=== PATIENT | female | born 1980 | race Caucasian/White ===

== ENCOUNTER 2020-08-18 16:03 | Emergency (ER) | payer OTHER, SELFPAY ==
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
--- NOTE | ~2020-08-18 | XR_ITS ---
XR tibia fibula RT 2V 08/18/2020 17:30 INDICATION: Right leg pain PROCEDURE: 2 views right tibia/fibula COMPARISON: No prior studies for comparison. FINDINGS: Fracture, dislocation or subluxation is not identified. The soft tissues appear within norm al limits. No foreign bodies are identified. IMPRESSION: 1: NO ACUTE BONE OR JOINT ABNORMALITY IDENTIFIED. Reviewed, dictated and finalized at location A.
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
--- NOTE | ~2020-08-18 | XR_ITS ---
XR tibia fibula LT 2V 08/18/2020 17:31 INDICATION: Left leg pain PROCEDURE: 2 views left tibia/fibula COMPARISON: No prior studies for comparison. FINDINGS: Fracture, dislocation or subluxation is not identified. The soft tissues appear within norm al limits. No foreign bodies are identified. IMPRESSION: 1: NO ACUTE BONE OR JOINT ABNORMALITY IDENTIFIED. Reviewed, dictated and finalized at location A.
[2020-08-18 16:36] VITALS: BP 126/82; PULSE 87; RESP 17; TEMP 36.7; O2SAT 100
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
== END 2020-08-18 18:02 | disposition home or self-care (01) ==
PROVIDERS: Emergency Provider Emergency Medicine; PCP Family Medicine
DX: S50.12XA Contusion of left forearm, initial encounter (principal); S50.11XA Contusion of right forearm, initial encounter; V43.52XA Car driver injured in collision with other type car in traffic accident, initial encounter
CPT/HCPCS: 71046; 71100; 73090; 73590; 99284

== ENCOUNTER → 2020-08-26 15:51 | Outpatient (CLI) | payer OTHER, SELFPAY ==
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
== END ==
PROVIDERS: Visit Provider Physician Assistant
DX: M54.12 Radiculopathy, cervical region (principal); M47.812 Spondylosis without myelopathy or radiculopathy, cervical region
CPT/HCPCS: 72040

== ENCOUNTER 2022-01-06 08:09 | Emergency (ER) | payer OTHER, SELFPAY ==
--- NOTE | 2022-01-06 08:15 | ED.GENADULT ---
HPI - General Adult General Chief complaint: Upper Respiratory Infection Stated complaint: Sore throat, fever Time Seen by Provider: 01/06/22 08:12 History of Present Illness HPI narrative: Mrs Guajardo is a 41 y/o female. PMHx MDD, CHANTALE. Presents to the [facility] clinic today w/acute complaints of sore throat and subjective fever at home for the past 24 hours. Client tells me she has a strong history of streptococcal throat infection. She notes white patches in her throat, and similar presentation historically. No NEWMAN, body aches, chills. No stridor, dyspnea, involuntary drooling. No cough, chest pain. No GI upset N/V. 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 No additional acute c/o upon PE. Related Data Home Medications Medication Instructions Recorded Confirmed multivitamin (Multiple Vitamins 1 tablet PO DAILY 06/03/20 01/06/22 tablet) Allergies Allergy/AdvReac Type Severity Reaction Status Date / Time latex Allergy Severe Rash Verified 01/06/21 14:39 erythromycin base Allergy Unknown up set Verified 01/06/21 14:39 stomach Review of Systems Review of Systems: CONSTITUTIONAL: Positive fever. No chills, sweats. EYES: Denies visual changes, redness, discharge. ENT: Nasal congestion, sore throat. Denies otalgia. CARDIOVASCULAR: Denies chest pain, palpitations, edema. RESPIRATORY: Denies dyspnea, wheezing, cough GASTROINTESTINAL: Denies abdominal pain, nausea, vomiting, diarrhea. GENITOURINARY: Denies dysuria, hematuria, abnormal discharge SKIN: Denies rash or itching. MUSCULOSKELETAL: Denies acute back pain, joint pain, or myalgia. NEUROLOGIC: Denies numbness, or focal weakness. PSYCHIATRIC: Denies SI/HI. [facility] Past Medical History Medical History FH: mastectomy GERD (gastroesophageal reflux disease) Kidney stones Surgical History Surgical History H/O lumpectomy Breast 2000, 2003 Previous section Family History Family History Grandparent Carcinoma of colon Mother Colon polyp Other Diabetes mellitus Family history of breast disorder Malignant neoplasm of prostate No family history of malignant neoplasm Social History Social History Second hand tobacco smoke exposure: Yes Alcohol intake: current Drinks per week: 1 Substance use: never Substance use type: other Gender identity (if verbalized by the patient): Female Exam Narrative: GENERAL: This is a well-nourished, well-developed adult, in no apparent distress. HEAD: normocephalic, atraumatic. EYES: PERRL. Sclera clear/white. EARS: External ears normal, auditory canals clear and without drainage, TMs normal. NOSE: External nose normal. Positive Rhinorrhea, no obstruction, nares patent. THROAT: Mucous membranes moist, posterior pharynx is erythematous, with mild exudative changes. No oropharyngeal significant swelling. NECK: Neck supple, non-tender without lymphadenopathy, masses or thyromegaly. CARDIOVASCULAR: Regular rate and rhythm without murmurs, gallops, or rubs. RESPIRATORY: Clear to auscultation. Breath sounds equal bilaterally. No wheezes, rales, or rhonchi. GASTROINTESTINAL: Abdomen soft, non-tender, nondistended. Bowel sounds are active. No guarding. SKIN: warm, intact with no suspicious lesions or rash, good texture and turgor. NEURO: Alert, active, and age appropriate. No focal neurologic deficits. Course Course Level of Care: Express Care Visit Vital Signs Vital signs: Vital Signs Temperature 37.1 C 01/06/22 08:19 Pulse Rate 90 01/06/22 08:19 Respiratory Rate 16 01/06/22 08:19 Blood Pressure 145/107 H 01/06/22 08:19 Pulse Oximetry 100 01/06/22 08:19 Oxygen Delivery Room Air 01/06/22
[2022-01-06 08:19] VITALS: BP 145/107; PULSE 90; RESP 16; TEMP 37.1; O2SAT 100
== END 2022-01-06 08:40 | disposition home or self-care (01) ==
PROVIDERS: Emergency Provider Nurse Practitioner Adult Health; PCP Physician Assistant
DX: J02.9 Acute pharyngitis, unspecified (principal); K21.9 Gastro-esophageal reflux disease without esophagitis; Z87.442 Personal history of urinary calculi
CPT/HCPCS: 87081; 87880; 99213; G0463

== ENCOUNTER 2022-05-07 08:22 | Emergency (ER) | payer OTHER, SELFPAY ==
--- NOTE | ~2022-05-07 | XR_ITS ---
EXAMINATION: XR chest 2V 05/07/2022 09:29 INDICATION: Chest pressure PROCEDURE: 2 view chest COMPARISON: 08/18/2020 FINDINGS: The lungs are clear. The cardiomediastinal silhouette is within normal limits. There are no pleural effusions. There is no pneumothorax suspected. IMPRESSION: 1: NO ACUTE CARDIOPULMONARY DISEASE. Reviewed, dictated and finalized at location A. 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
--- NOTE | 2022-05-07 08:29 | ECG_ITS ---
Measurements Intervals Hiko Rate: 94 P: 55 AK: 143 QRS: 14 QRSD: 86 T: 24 QT: 350 QTc: 439 Interpretive Statements SINUS RHYTHM WITH SINUS ARRHYTHMIA BASELINE ARTIFACT- I, III NORMAL ECG COMPARED TO ECG 07/11/2018 10:34:48 SINUS ARRHYTHMIA NOW PRESENT Electronically Signed On 05-07-2022 9:59:24 APPLIED RESEARCH DIRECTOR by Yonathan Chen D.O.
[2022-05-07 08:48] VITALS: BP 130/85; PULSE 100; RESP 18; TEMP 36.8; O2SAT 100
[2022-05-07 09:03] VITALS: PULSE 94
[2022-05-07 09:05] VITALS: O2SAT 100
[2022-05-07 09:15] VITALS: BP 122/79; PULSE 85; RESP 17; O2SAT 100
--- NOTE | 2022-05-07 09:20 | ED.CHESTPAIN ---
HPI - Chest Pain General Chief Complaint: Chest Pain Stated Complaint: chest tightness, visual change (resolved) Time Seen by Provider: 05/07/22 09:02 History of Present Illness HPI narrative: 41-year-old female with history of anxiety and panic attacks here for evaluation of an episode of chest pain today. Patient states that she was standing in her kitchen when she suddenly felt a tightness develop in the center of her chest. This lasted for several seconds before resolving without intervention. After this event, she had a episode of lightheadedness and presyncope where she had some visual changes, this also resolved without intervention after lasting for several seconds. Patient does have a history of panic attacks and states that this episode feels similar, and the symptoms themselves are very distressing for her and caused her to have a panic attack afterwards. She currently denies any symptoms. No headaches, nausea, vomiting, eye pain, unilateral weakness, slurred speech. Related Data Home Medications Medication Instructions Recorded Confirmed multivitamin (Multiple Vitamins 1 tablet PO DAILY 06/03/20 01/24/22 tablet) Allergies Allergy/AdvReac Type Severity Reaction Status Date / Time latex Allergy Severe Rash Verified 05/07/22 09:06 erythromycin base Allergy Unknown up set Verified 05/07/22 09:06 stomach Review of Systems Review of Systems: Gen: Reports presyncope Eyes: Denies eye pain or visual change ENT: Denies congestion Respiratory: Denies shortness of breath or cough CV: Reports chest pain, resolved. GI: Denies abdominal pain nausea, emesis or diarrhea denies burning, urgency, frequency or hematuria Musculoskeletal: Denies back pain or muscle pain Neuro: Denies numbness, tingling, weakness or focal weakness Skin: Denies rash Except as documented, all other systems reviewed and negative [facility] Past Medical History Medical History FH: mastectomy GERD (gastroesophageal reflux disease) Kidney stones Surgical History Surgical History H/O lumpectomy Breast 2000, 2003 Previous section Family History Family History Grandparent Carcinoma of colon Mother Colon polyp Other Diabetes mellitus Family history of breast disorder Malignant neoplasm of prostate No family history of malignant neoplasm Social History Social History (Updated 01/24/22 @ 08:26 by Cathleen Trent) Social History: Caffeine-coffee daily Years smoked: 12 Smoking status: Current every day smoker Second hand tobacco smoke exposure: Yes Alcohol intake: current Drinks per week: 1 Alcohol use details: beer occasionally Substance use: never Substance use type: other Gender identity (if verbalized by the patient): Female Exam Narrative: APPEARANCE: Well appearing, no pain in distress, well-nourished. Head: Normocephalic and atraumatic. EYES: PERRLA/EOMI, conjunctivae clear NOSE: No nasal drainage EARS: External ear normal in appearance THROAT: Oropharynx is clear. Mucous membranes are moist. NECK: Supple. No adenopathy, no masses. RESPIRATORY: Airway patent, respirations nonlabored. Clear to auscultation bilaterally, no rales, rhonchi, wheezing. CARDIOVASCULAR: Regular rate and rhythm without murmurs, rubs, or gallops. ABDOMINAL: Normoactive bowel sounds. Soft, nontender, nondistended. No rebound tenderness or guarding. MUSCULOSKELETAL: Extremities are warm and well-perfused. Moves all extremities well. No edema. NEURO: Normal speech. No focal neurologic deficits. SKIN: Skin is warm and dry. No rashes. PSYCHIATRIC: Normal affect/mood.. Course Vital Signs Vital signs: Vital Signs Temperature 98.2 F 05/07/22 08:48 Pulse Rate 100 05/07/22 08:48 Respiratory Rate 18 05/07/22 08:48 Blood Press
[2022-05-07 09:48] LABS: Basophils Percent Auto 0.5 % (0.2-1.2); Eosinophils Absolute Auto 0.1 K/mm3 (0-0.3); Hematocrit 44.8 % (37.0-47.0); Hemoglobin 14.8 g/dL (12.0-15.0); Immature Granulocyte Absolute 0.02 K/mm3 (0.00-0.031); Immature Granulocyte Percent A 0.3 % (0-0.5); Lymphocytes Absolute Auto 1.85 K/mm3 (0.9-3.2); Lymphocytes Percent Auto 25.3 % (18.3-44.2); Mean Corpuscular Hemoglobin 31.3 pg (26-34); Mean Corpuscular Volume 94.7 fl (80-100); Mean Platelet Volume 9.1 fl (7.4-10.4); Monocytes Absolute Auto 0.5 K/mm3 (0.1-0.6); Monocytes Percent Auto 6.8 % (2.6-8.5); Neutrophils Absolute Auto 4.8 K/mm3 (1.3-6.7); Neutrophils Percent Auto 66.1 % (45.5-73.1); Platelet Count Result 285 k/mm3 (150-375); Red Blood Count 4.73 M/mm3 (4.2-5.4); Red Cell Distribution Width 12.6 % (11.5-14.5); White Blood Count 7.3 K/mm3 (4.5-10.0)
[2022-05-07 10:08] VITALS: BP 128/85; PULSE 73; RESP 18; O2SAT 100
[2022-05-07 10:10] LABS: Alanine Aminotransferase 23 U/L (6-35); Albumin Level 4.8 g/dL (3.5-5.1); Alkaline Phosphatase 58 U/L (38-126); Anion Gap 6 mmol/L (8-16); Aspartate Amino Transferase 26 U/L (14-36); Bilirubin,Total 0.8 mg/dL (0.2-1.3); Blood Urea Nitrogen 16 mg/dL (7-17); Carbon Dioxide 26 mmol/L (22-30); Chloride 107 mmol/L (98-107); Estimated CRCL calculation 117 ml/min; Estimated Glomerular Filt Rate > 60; Glucose 107 mg/dL (65-110); Lipase 125 U/L (23-300); Potassium 3.8 mmol/L (3.4-5.0); Sodium 139 mmol/L (137-145)
[2022-05-07 10:21] LABS: Troponin I < 0.012 ng/mL (0.000-0.034)
[2022-05-07 10:39] VITALS: BP 124/86; PULSE 78; RESP 18; O2SAT 100
== END 2022-05-07 10:41 | disposition home or self-care (01) ==
PROVIDERS: Emergency Provider Physician Assistant; PCP Family Medicine
DX: F41.9 Anxiety disorder, unspecified (principal); K21.9 Gastro-esophageal reflux disease without esophagitis; F17.200 Nicotine dependence, unspecified, uncomplicated; Z87.442 Personal history of urinary calculi
CPT/HCPCS: 36415; 71046; 80053; 83690; 84484; 85025; 93005; 99284

== ENCOUNTER 2022-07-16 15:46 | Emergency (ER) | payer OTHER, SELFPAY ==
[2022-07-16 16:00] VITALS: BP 123/87; PULSE 98; RESP 16; TEMP 37.2; O2SAT 98
--- NOTE | 2022-07-16 16:37 | ED.URI ---
HPI - URI/Sore Throat General Chief Complaint: Upper Respiratory Infection Stated Complaint: BODY ACHES/COUGH/CONGESTION Time Seen by Provider: 07/16/22 16:30 History of Present Illness HPI Narrative: 41-year-old female presented for complaint of body aches and cough for the last 2 days. She states she cannot lay down without feeling crackles in her chest, and cannot breathe without coughing. She states cough is productive of brown sputum, denies shortness of breath, wheezing, nausea vomiting, diarrhea, fevers or chills. She is taking ibuprofen and Delsym for symptoms. Endorses son with similar symptoms and daughter had flu last week. Related Data Home Medications Medication Instructions Recorded Confirmed multivitamin (Multiple Vitamins 1 tablet PO DAILY 06/03/20 07/16/22 tablet) Allergies Allergy/AdvReac Type Severity Reaction Status Date / Time latex Allergy Severe Rash Verified 05/07/22 09:06 erythromycin base Allergy Unknown up set Verified 05/07/22 09:06 stomach Review of Systems Review of Systems: CONSTITUTIONAL: Reports body aches, Denies fever, chills, or sweats. EYES: Denies visual changes, redness, or discharge. ENT: Denies rhinorrhea, congestion, or otalgia. CARDIOVASCULAR: Denies chest pain, palpitations, or edema. RESPIRATORY: Reports cough denies dyspnea. GASTROINTESTINAL: Denies abdominal pain, nausea, vomiting, or diarrhea. SKIN: Denies rash, itching, or wounds. MUSCULOSKELETAL: Denies back pain, joint pain, or myalgia. NEUROLOGIC: Denies headache PMFSH Past Medical History Medical History Diffuse cystic mastopathy FH: mastectomy Generalized anxiety disorder GERD (gastroesophageal reflux disease) Kidney stones Nicotine dependence Surgical History Surgical History H/O lumpectomy Breast 2000, 2003 Previous section Family History Family History Grandparent Carcinoma of colon Mother Colon polyp Other Diabetes mellitus Family history of breast disorder Malignant neoplasm of prostate No family history of malignant neoplasm Social History Social History Social History: Caffeine-coffee daily Years smoked: 12 Smoking status: Current every day smoker Second hand tobacco smoke exposure: Yes Alcohol intake: current Drinks per week: 1 Alcohol use details: beer occasionally Substance use: never Substance use type: other Living arrangements: with family Occupation/Education: occupation Gender identity (if verbalized by the patient): Female Exam Narrative: GENERAL: midly Ill-appearing, no acute distress. EYES: conjunctivae clear ENT: Mucous membranes moist. TM pearly love with normal light reflex bilaterally; no tragal tenderness. Oropharynx not erythematous without tonsillar swelling, lesions or exudate. No drooling, no hoarseness, no trismus, uvula midline. No tripod positioning, hot potato voice, or soft palate swelling. NECK: Supple. No lymphadenopathy CHEST: Clear to auscultation, breath sounds equal. Occasional nonproductive cough. no respiratory distress, speaks in full sentences. HEART: Regular rate and rhythm. No murmur heard. SKIN: Warm, dry, no rash. NEURO: Alert and oriented x3. Course Course Emergency Course: Patient is aware of diagnosis, understands and agrees to treatment plan. Anticipatory guidance given. Patient agrees to follow-up as directed and is aware of reasons to seek care at the emergency department. Portions of this record may have been created with voice recognition software Level of Care: Express Care Visit Vital Signs Vital signs: Vital Signs Temperature 98.9 F 07/16/22 16:00 Pulse Rate 98 07/16/22 16:00 Respiratory Rate 16 07/16/22 16:00 Blood Pressure
== END 2022-07-16 17:15 | disposition home or self-care (01) ==
PROVIDERS: Emergency Provider Nurse Practitioner Family; PCP Family Medicine
DX: B34.9 Viral infection, unspecified (principal); F17.200 Nicotine dependence, unspecified, uncomplicated; Z20.822 Contact with and (suspected) exposure to COVID-19
CPT/HCPCS: 87426; 87804; 99213; C9803; G0463

== ENCOUNTER 2022-08-17 13:52 | Emergency (ER) | payer OTHER, SELFPAY ==
--- NOTE | 2022-08-17 13:59 | ED.URI ---
HPI - URI/Sore Throat General Chief Complaint: Upper Respiratory Infection Stated Complaint: FEVER/SORE THROAT Time Seen by Provider: 08/17/22 14:09 Source: patient and RN notes reviewed Mode of arrival: ambulatory Limitations: no limitations History of Present Illness HPI Narrative: 41-year-old female presents with concern for sore throat, fever. History of strep infections. She denies runny nose, stuffy nose. Denies known sick contacts MD elicited complaint: sore throat Related Data Home Medications Medication Instructions Recorded Confirmed multivitamin (Multiple Vitamins 1 tablet PO DAILY 06/03/20 08/17/22 tablet) Allergies Allergy/AdvReac Type Severity Reaction Status Date / Time latex Allergy Severe Rash Verified 08/17/22 14:08 erythromycin base Allergy Unknown up set Verified 08/17/22 14:08 stomach Review of Systems Review of Systems: CONSTITUTIONAL: Denies malaise, chills, sweats, or fever. EYES: Denies visual changes, redness, or discharge. ENT: Reports rhinorrhea, congestion, sinus pain, otalgia and sore throat. CARDIOVASCULAR: Denies chest pain, palpitations, or edema. RESPIRATORY: Reports cough. Denies dyspnea. GASTROINTESTINAL: Denies abdominal pain, nausea, vomiting, diarrhea SKIN: Denies rash or itching. MUSCULOSKELETAL: Denies myalgia. NEUROLOGIC: Denies headache. All systems reviewed & are unremarkable except as noted in HPI and below PMFSH Past Medical History Medical History Diffuse cystic mastopathy FH: mastectomy Generalized anxiety disorder GERD (gastroesophageal reflux disease) Kidney stones Nicotine dependence Surgical History Surgical History H/O lumpectomy Breast 2000, 2003 Previous section Family History Family History Grandparent Carcinoma of colon Mother Colon polyp Other Diabetes mellitus Family history of breast disorder Malignant neoplasm of prostate No family history of malignant neoplasm Social History Social History Social History: Caffeine-coffee daily Years smoked: 12 Smoking status: Current every day smoker Second hand tobacco smoke exposure: Yes Alcohol intake: current Drinks per week: 1 Alcohol use details: beer occasionally Substance use: never Substance use type: other Living arrangements: with family Occupation/Education: occupation Gender identity (if verbalized by the patient): Female Comments At time of signature, agree with nursing past medical, surgical, social and family history. There is no relevant family history pertinent to the presenting complaint Exam Narrative: GENERAL: Well-appearing, well-nourished, and in no acute distress. HEAD: Normocephalic EYES: PERRLA, conjunctivae clear ENT: Nares clear, clear discharge. Mucous membranes moist. TM pearly love with dull light reflex bilaterally; no tragal tenderness. Oropharynx erythematous without lesions. Tonsils not enlarged and without exudate, no drooling, no hoarseness, no trismus, uvula midline. NECK: Supple. No lymphadenopathy CHEST: Clear to auscultation, breath sounds equal. No wheezing, rhonchi, rales, or stridor. No respiratory distress, speaks in full sentences. HEART: Regular rate and rhythm. No murmur heard. SKIN: Warm, dry, no rash. NEURO: Alert and oriented x3. PSYCH: Normal mood and affect Course Course Emergency Course: Patient is aware of diagnosis, understands and agrees to treatment plan. Anticipatory guidance given. Patient agrees to follow-up as directed and is aware of reasons to seek care at the emergency department. Portions of this record may have been created with voice recognition software Level of Care: Express Care Visit Vital Signs Vital signs: Reviewed. MDM - URI/Sore Throat
[2022-08-17 14:07] VITALS: BP 132/90; PULSE 102; RESP 16; TEMP 36.6; O2SAT 99
[2022-08-17 14:09] VITALS: BP 132/90; PULSE 102; RESP 16; TEMP 36.6; O2SAT 99
== END 2022-08-17 14:20 | disposition home or self-care (01) ==
PROVIDERS: Emergency Provider Nurse Practitioner; PCP Family Medicine
DX: J02.0 Streptococcal pharyngitis (principal); F17.200 Nicotine dependence, unspecified, uncomplicated; K21.9 Gastro-esophageal reflux disease without esophagitis; F41.1 Generalized anxiety disorder
CPT/HCPCS: 87880; 99213; G0463

== ENCOUNTER 2022-08-28 08:06 | Emergency (ER) | payer OTHER, SELFPAY ==
--- NOTE | 2022-08-28 08:20 | ED.URI ---
HPI - URI/Sore Throat General Chief Complaint: Upper Respiratory Infection Stated Complaint: sore throat, trouble swallowing Time Seen by Provider: 08/28/22 08:20 Source: patient, RN notes reviewed and old records reviewed Mode of arrival: ambulatory Limitations: no limitations History of Present Illness HPI Narrative: 41-year-old female who presents to [facility] with continued complaints of sore throat and trouble swallowing since yesterday, one day after completion of previous ordered antibiotic. Patient was treated on the 17 of August with Penicillin VK with 10 days supply for positive strep screen. Patient reports since yesterday she has had progressive increase in pain and swelling of her throat with swelling of the glands in her throat and swelling and redness of uvula. Patient reports that she has been able to control her own secretions orally but pain swallowing.Patient has been taking Ibuprofen for her discomfort, unknown if fever but has had chills and sweats. MD elicited complaint: sore throat Pertinent past history: other (recent strep throat diagnosis on August 17) Onset (ago): day(s) (since yesterday) Pain scale (0-10): 6 Exacerbating factors: swallowing Treatments prior to arrival: ibuprofen and antibiotics ( completed 10 day supply of Penicillin-VK) Related Data Home Medications Medication Instructions Recorded Confirmed multivitamin (Multiple Vitamins 1 tablet PO DAILY 06/03/20 08/28/22 tablet) Allergies Allergy/AdvReac Type Severity Reaction Status Date / Time latex Allergy Severe Rash Verified 08/28/22 08:20 erythromycin base Allergy Unknown up set Verified 08/28/22 08:20 stomach Review of Systems Review of Systems: CONSTITUTIONAL: Reports malaise, chills, sweats, or fever. EYES: Denies visual changes, redness, or discharge. ENT: Reports rhinorrhea, congestion,no sinus pain,no otalgia, positive for sore throat. CARDIOVASCULAR: Denies chest pain, palpitations, or edema. RESPIRATORY: Reports no cough.? Denies dyspnea. GASTROINTESTINAL: Denies abdominal pain, nausea, vomiting, diarrhea SKIN: Denies rash or itching. MUSCULOSKELETAL: reports myalgia. NEUROLOGIC: Denies headache. All systems reviewed & are unremarkable except as noted in HPI and below PMFSH Past Medical History Medical History Diffuse cystic mastopathy FH: mastectomy Generalized anxiety disorder GERD (gastroesophageal reflux disease) Kidney stones Nicotine dependence Surgical History Surgical History H/O lumpectomy Breast 2000, 2003 Previous section Family History Family History Grandparent Carcinoma of colon Mother Colon polyp Other Diabetes mellitus Family history of breast disorder Malignant neoplasm of prostate No family history of malignant neoplasm Social History Social History Social History: Caffeine-coffee daily Years smoked: 12 Smoking status: Current every day smoker Second hand tobacco smoke exposure: Yes Alcohol intake: current Drinks per week: 1 Alcohol use details: beer occasionally Substance use: never Substance use type: other Living arrangements: with family Occupation/Education: occupation Gender identity (if verbalized by the patient): Female Comments At time of signature, agree with nursing past medical, surgical, social and family history. There is no relevant family history pertinent to the presenting complaint Exam Narrative: GENERAL: Well-appearing, well-nourished, and in no acute distress. HEAD: Normocephalic EYES: PERRLA, conjunctivae clear ENT: Nares clear, turbinates edematous and erythematous, clear discharge. Mucous membranes moist. TM pearly love with dull light reflex bilaterally; no tra
[2022-08-28 08:27] VITALS: BP 110/79; PULSE 97; RESP 16; TEMP 36.8; O2SAT 99
== END 2022-08-28 08:42 | disposition home or self-care (01) ==
PROVIDERS: Emergency Provider Registered Nurse; PCP Family Medicine
DX: J02.0 Streptococcal pharyngitis (principal); K12.2 Cellulitis and abscess of mouth; F17.200 Nicotine dependence, unspecified, uncomplicated; K21.9 Gastro-esophageal reflux disease without esophagitis
CPT/HCPCS: 87880; 99213; G0463

== ENCOUNTER → 2023-05-09 15:51 | Outpatient (CLI) | payer OTHER, SELFPAY ==
--- NOTE | ~2023-05-09 | MM_ITS ---
EXAMINATION: MM screening jimmy BI w balta HISTORY: Screening mammogram TECHNIQUE: Craniocaudal and mediolateral oblique 3-D tomosynthesis images were obtained and synthetic 2-D images were generated. CAD analysis was submitted and interpreted. COMPARISON: No prior mammogram is available for comparison at this institution. BREAST PARENCHYMAL COMPOSITION:Dense: The breasts are extremely dense, which lowers the sensitivity o f mammography. FINDINGS: No suspicious mass, calcification, or architectural distortion are identified in either justen ast to suggest malignancy. IMPRESSION: No mammographic evidence of malignancy. Recommend routine screening mammography in one year. BI-RADS Category 1: Negative Reviewed, dictated and finalized at location . ENT ATTENDANT
== END ==
PROVIDERS: PCP Emergency Medicine; Visit Provider Emergency Medicine
DX: Z12.31 Encounter for screening mammogram for malignant neoplasm of breast (principal)
CPT/HCPCS: 77063; 77067

== ENCOUNTER 2023-07-05 08:01 | Emergency (ER) | payer OTHER, SELFPAY ==
[2023-07-05 08:10] VITALS: BP 117/90; PULSE 94; RESP 18; TEMP 36.8; O2SAT 100
--- NOTE | 2023-07-05 08:11 | ED.URI ---
HPI - URI/Sore Throat General Chief Complaint: Upper Respiratory Infection Stated Complaint: SORE THROAT Time Seen by Provider: 07/05/23 08:12 Source: patient Mode of arrival: ambulatory Limitations: no limitations History of Present Illness HPI Narrative: Ashli is a 42-year-old female patient presenting to the clinic today with complaints of a sore throat and fever that started around 3:00 a.m. this morning. She reports highest fever was 102. Denies any runny nose, cough, or body aches. MD elicited complaint: sore throat and nasal congestion Related Data Home Medications Medication Instructions Recorded Confirmed multivitamin (Multiple Vitamins 1 tablet PO DAILY 06/03/20 07/05/23 tablet) Allergies Allergy/AdvReac Type Severity Reaction Status Date / Time latex Allergy Severe Rash Verified 07/05/23 08:20 erythromycin base Allergy Unknown up set Verified 07/05/23 08:20 stomach Review of Systems Review of Systems: Pertinent positives per HPI. Patient denies any rash, visual changes, dizziness, cough, shortness of breath, chest pain, palpitations, nausea, vomiting, diarrhea, constipation, abdominal pain, or any urinary issues. [facility] Past Medical History Medical History Diffuse cystic mastopathy FH: mastectomy Generalized anxiety disorder GERD (gastroesophageal reflux disease) Kidney stones Nicotine dependence Surgical History Surgical History H/O lumpectomy Breast 2000, 2003 Previous section Family History Family History Grandparent Carcinoma of colon Mother Colon polyp Other Diabetes mellitus Family history of breast disorder Malignant neoplasm of prostate No family history of malignant neoplasm Social History Social History Social History: Caffeine-coffee daily Years smoked: 12 Smoking status: Current every day smoker Second hand tobacco smoke exposure: Yes Alcohol intake: current Drinks per week: 1 Alcohol use details: beer occasionally Substance use: never Substance use type: other Lack of Transportation: No Lack of Food: Never True Current Housing: I Have Housing Concerned About Future Housing: No Difficulty Paying Gas/Electric Bills: No Difficulty Paying for Meds: No Currently Unemployed: No Education: High School Diploma/GED Difficulty w/ Childcare or Family Care: No Living arrangements: with family Occupation/Education: occupation Gender identity (if verbalized by the patient): Female Comments At the time of my signature, I reviewed and agree with the nursing past medical, surgical, social, and family history. There is no relevant family history pertinent to the patient complaint. Exam Narrative: General: Well-developed, well nourished, in no apparent distress Head: Normocephalic, atraumatic Eyes: Pupils equally round and reactive to light bilaterally, EOM intact, sclera and conjunctive clear, no discharge, lids normal Ears: TMs intact and clear, ear canals clear, no drainage, grossly hearing normal. Nose: Nares patent, no discharge, no inflammation, no sinus tenderness. Mouth: Oral pharynx red with bilateral tonsillar enlargement and exudate to the left tonsil without lesions or masses, good dentition, MMM. Neck: Supple, trachea midline, enlargement of anterior cervical nodes, no thyroid masses or goiter palpable. Cardio: Regular rate and rhythm, s1 and s2 normal, no murmur appreciated. Resp: Clear to auscultation bilaterally, no rhonchi, rales, wheezing or rubs Course Course Emergency Course: Portions of this record may have been created with voice recognition software. Level of Care: Express Care Visit Vital Signs Vital signs: Vital signs reviewed MDM - URI/John
== END 2023-07-05 08:40 | disposition home or self-care (01) ==
PROVIDERS: Emergency Provider Nurse Practitioner Family; PCP Emergency Medicine
DX: J03.90 Acute tonsillitis, unspecified (principal); F17.200 Nicotine dependence, unspecified, uncomplicated; K21.9 Gastro-esophageal reflux disease without esophagitis; F41.9 Anxiety disorder, unspecified
CPT/HCPCS: 87880; 99213; G0463

== ENCOUNTER 2023-10-13 08:50 | Outpatient (CLI) | payer OTHER, SELFPAY ==
[2023-10-13 13:28] LABS: Alanine Aminotransferase 17 U/L (6-35); Albumin Level 4.2 g/dL (3.5-5.1); Alkaline Phosphatase 53 U/L (38-126); Anion Gap 6 mmol/L (4-12); Aspartate Amino Transferase 57 U/L (14-36); Bilirubin,Total 0.6 mg/dL (0.2-1.3); Blood Urea Nitrogen 19 mg/dL (7-17); Calcium 8.9 mg/dL (8.4-10.2); Carbon Dioxide 24 mmol/L (22-30); Chloride 109 mmol/L (98-107); Cholesterol 184 mg/dL (0-200); Estimated Glomerular Filt Rate > 60; Glucose 92 mg/dL (65-110); HDL Direct 70 mg/dL; Potassium 4.2 mmol/L (3.4-5.0); Sodium 139 mmol/L (137-145); Triglycerides 51 mg/dL (<150)
[2023-10-13 13:39] LABS: LDL Cholesterol Direct 97 mg/dL
[2023-10-13 14:19] LABS: Hemoglobin A1C 5.2 % (<5.7)
[2023-10-13 14:37] LABS: Vitamin D 25 Hydroxy 56.3 ng/mL
[2023-10-13 14:51] LABS: Thyroid Stimulating Hormone Reflex 0.761 uIU/mL (0.465-4.68)
== END 2023-10-13 08:51 | disposition home or self-care (01) ==
LOC: ANHGOSHLAB 08:52
PROVIDERS: PCP Emergency Medicine; Visit Provider Emergency Medicine
DX: R63.5 Abnormal weight gain (principal); Z86.39 Personal history of other endocrine, nutritional and metabolic disease; Z13.1 Encounter for screening for diabetes mellitus; Z13.220 Encounter for screening for lipoid disorders; Z79.899 Other long term (current) drug therapy
CPT/HCPCS: 36415; 80053; 80061; 82306; 83036; 84443

== ENCOUNTER 2023-11-22 08:17 | Emergency (ER) | payer OTHER, SELFPAY ==
[2023-11-22 08:37] VITALS: BP 112/83; PULSE 86; RESP 16; TEMP 37.1; O2SAT 100
--- NOTE | 2023-11-22 08:48 | ED.NAVMDI ---
HPI - Nausea/Vomiting/Diarrhea General Chief complaint: Nausea/Vomiting/Diarrhea Stated complaint: VOMITING/DIARRHEA Time Seen by Provider: 11/22/23 08:45 Source: patient and RN notes reviewed Mode of arrival: ambulatory Limitations: no limitations History of Present Illness HPI Narrative: 43-year-old female presents concern for diarrhea. Reports she was recently in [place], after she returned she began having watery diarrhea any time she eats any food. She reports she has had body aches, low-grade fever and nausea as well. She denies vomiting. She reports her family members have similar symptoms. She has not taken any medication for her symptoms. She has drinking plenty of fluid and urinating normally MD elicited complaint: diarrhea Related Data Home Medications Medication Instructions Recorded Confirmed multivitamin (Multiple Vitamins 1 tablet PO DAILY 06/03/20 11/22/23 tablet) Allergies Allergy/AdvReac Type Severity Reaction Status Date / Time latex Allergy Severe Rash Verified 11/22/23 08:56 erythromycin base Allergy Unknown up set Verified 11/22/23 08:56 stomach Review of Systems Review of Systems: CONSTITUTIONAL: Denies malaise, chills, sweats. Reports low-grade fever. ENT: Denies rhinorrhea, congestion, sinus pain, otalgia or sore throat. CARDIOVASCULAR: Denies chest pain, palpitations, or edema. RESPIRATORY: Denies cough or dyspnea. GASTROINTESTINAL: Denies abdominal pain, vomiting, bloody, or mucous stools. Reports nausea and diarrhea GENITOURINARY: Denies dysuria or hematuria. MUSCULOSKELETAL: Reports myalgia. NEUROLOGIC: Denies headache. All systems reviewed & are unremarkable except as noted in HPI and below PMFSH Past Medical History Medical History Diffuse cystic mastopathy FH: mastectomy Generalized anxiety disorder GERD (gastroesophageal reflux disease) Kidney stones Nicotine dependence Surgical History Surgical History H/O lumpectomy Breast 2000, 2003 Previous section Family History Family History Grandparent Carcinoma of colon Mother Colon polyp Other Diabetes mellitus Family history of breast disorder Malignant neoplasm of prostate No family history of malignant neoplasm Social History Social History Social History: Caffeine-coffee daily Years smoked: 12 Smoking status: Current every day smoker Second hand tobacco smoke exposure: Yes Alcohol intake: current Drinks per week: 1 Alcohol use details: beer occasionally Substance use: never Substance use type: other Lack of Transportation: No Lack of Food: Never True Current Housing: I Have Housing Concerned About Future Housing: No Difficulty Paying Gas/Electric Bills: No Difficulty Paying for Meds: No Currently Unemployed: No Education: High School Diploma/GED Difficulty w/ Childcare or Family Care: No Living arrangements: with family Occupation/Education: occupation Gender identity (if verbalized by the patient): Female Comments At time of signature, agree with nursing past medical, surgical, social and family history. There is no relevant family history pertinent to the presenting complaint Exam Narrative: GENERAL: Well-appearing, well-nourished, and in no acute distress. HEAD: Normocephalic, atraumatic. EYES: PERRLA, conjunctivae clear, and EOMI. ENT: Nares clear, turbinates pink, no rhinorrhea or epistaxis. Mucous membranes moist. Oropharynx without edema, erythema, or lesions. Tonsils not enlarged and without exudate. NECK: Supple. No lymphadenopathy CHEST: Speaks in full sentences. No respiratory distress. HEART: Regular rate and rhythm. ABDOMEN: Soft, flat, nondistended, nontender. No guarding, rebound tendernes
== END 2023-11-22 09:10 | disposition home or self-care (01) ==
PROVIDERS: Emergency Provider Nurse Practitioner; PCP Emergency Medicine
DX: A09 Infectious gastroenteritis and colitis, unspecified (principal); F17.200 Nicotine dependence, unspecified, uncomplicated; K21.9 Gastro-esophageal reflux disease without esophagitis
CPT/HCPCS: 99213; G0463

== ENCOUNTER 2024-05-13 15:55 | Outpatient (CLI) | payer OTHER, SELFPAY ==
--- NOTE | ~2024-05-13 | MM_ITS ---
EXAMINATION: MM screening jimmy BI w balta HISTORY: Screening mammogram TECHNIQUE: Craniocaudal and mediolateral oblique 3-D tomosynthesis images were obtained and synthetic 2-D images were generated. CAD analysis was submitted and interpreted. COMPARISON: 05/09/2023 BREAST PARENCHYMAL COMPOSITION:Dense: The breasts are extremely dense, which lowers the sensitivity o f mammography. FINDINGS: Stable low-density ovoid mass at the lower, inner right breast. No suspicious mass, calcifi cation, or architectural distortion are identified in either breast to suggest malignancy. There has been no suspicious interval change. IMPRESSION: No mammographic evidence of malignancy. Recommend routine screening mammography in one year. BI-RADS Category 2: Benign finding(s). Reviewed, dictated and finalized at location M. EXPERT
== END 2024-05-13 15:56 | disposition home or self-care (01) ==
LOC: MICIMG 15:59
PROVIDERS: PCP Family Medicine; Visit Provider Family Medicine
DX: Z12.31 Encounter for screening mammogram for malignant neoplasm of breast (principal)
CPT/HCPCS: 77063; 77067